=== PATIENT | male | born 1980 | race African-American/Black ===

== ENCOUNTER → 2024-01-16 16:27 | Outpatient (REF) | payer BC, SELFPAY ==
[2024-01-16 18:17] LABS: ALT (SGPT) 19 U/L (0-50); AST (SGOT) 33 U/L (17-59); Albumin 3.9 g/dl (3.5-5.0); Alkaline Phosphatase 100 U/L (38-126); Blood Urea Nitrogen 9 mg/dl (9-20); Carbon Dioxide 30 mmol/L (22-30); Chloride 104 mmol/L (98-107); Glucose 79 mg/dl (70-99); Potassium 4.9 mmol/L (3.5-5.1); Sodium 137 mmol/L (135-145); Total Bilirubin 0.5 mg/dl (0.2-1.3); Total Protein 7.3 g/dl (6.3-8.2); eGFR > 60.00
== END ==
LOC: REG 16:27
PROVIDERS: ATTENDING PHYSICIAN Student in an Organized Health Care Education/Training Program
DX: Z22.7 Latent tuberculosis (principal)
CPT/HCPCS: 36415; 80053

== ENCOUNTER → 2024-08-14 11:06 | Outpatient (REF) | payer BC, SELFPAY ==
[2024-08-14 19:29] LABS: ALT (SGPT) 23 U/L (0-50); AST (SGOT) 37 U/L (17-59); Albumin 4.5 g/dl (3.5-5.0); Alkaline Phosphatase 103 U/L (38-126); Blood Urea Nitrogen 11 mg/dl (9-20); Calcium 9.5 mg/dl (8.4-10.2); Carbon Dioxide 24 mmol/L (22-30); Chloride 105 mmol/L (98-107); Glucose 95 mg/dl (70-99); HDL Cholesterol 68 mg/dl; LDL Cholesterol, Calculated 123 mg/dl; Potassium 4.5 mmol/L (3.5-5.1); Sodium 139 mmol/L (135-145); Total Bilirubin 0.7 mg/dl (0.2-1.3); Total Cholesterol 205 mg/dl (50-199); Total Protein 7.3 g/dl (6.3-8.2); Triglyceride 73 mg/dl (10-149); Very Low Density Lipoprotein 14 mg/dl (0-30); eGFR > 60.00
[2024-08-14 19:35] LABS: Hematocrit 43.4 % (39.0-52.0); Hemoglobin 14.8 g/dL (13.0-18.0); Mean Corp Hgb Conc. 34.1 g/dL (33.0-37.0); Mean Corpuscular Hgb 30.8 pg (27.0-31.0); Mean Corpuscular Volume 90.2 fL (80.0-94.0); Platelet Count 219 10^3/uL (130-400); Red Blood Cell Count 4.81 10^6/uL (4.70-6.10); Red Cell Dist. Width 13.1 % (11.5-14.5); White Blood Cell Count 2.8 10^3/uL (4.8-10.8)
[2024-08-14 19:46] LABS: Free T4 0.88 ng/dl (0.78-2.19)
[2024-08-14 20:00] LABS: TSH 1.32 uIU/ml (0.47-4.68)
[2024-08-14 20:04] LABS: % Basophils 1.1 % (0-2); % Eosinophils 1.4 % (0-6); % Lymphocytes 56.3 % (20.5-51.1); % Monocytes 7.6 % (1.7-9.3); % Neutrophils 33.6 % (42.2-75.2); Absolute Lymphocytes 1.6 10^3/uL (1.2-3.4); Absolute Monocytes 0.2 10^3/uL (0.1-0.6); Absolute Neutrophils 0.9 10^3/uL (1.4-6.5); Nucleated Red Blood Cells % 0 % (-)
[2024-08-15 18:36] LABS: Hepatitis B Surface Antigen Negative (Negative)
[2024-08-15 18:51] LABS: Hepatitis B Core Ab, Total Negative (Negative); Hepatitis B Surface Antibody Positive; Hepatitis C Antibody Negative (Negative)
[2024-08-16 22:15] LABS: PSA Total 1.1 ng/mL (0.0-4.0)
== END ==
LOC: HWRAD 11:06
PROVIDERS: ATTENDING PHYSICIAN Student in an Organized Health Care Education/Training Program
DX: M25.552 Pain in left hip (principal); E78.5 Hyperlipidemia, unspecified; D70.9 Neutropenia, unspecified; Z11.59 Encounter for screening for other viral diseases; Z86.15 Personal history of latent tuberculosis infection; Z12.5 Encounter for screening for malignant neoplasm of prostate
CPT/HCPCS: 36415; 72110; 73502; 80053; 80061; 84153; 84154; 84439; 84443; 85025; 86704; 86706; 86803; 87340

== ENCOUNTER → 2024-09-17 12:00 | Outpatient (REF) | payer BC, SELFPAY | LOC: DHSLP 12:00 | PROVIDERS: ATTENDING PHYSICIAN Student in an Organized Health Care Education/Training Program | DX: G47.33 Obstructive sleep apnea (adult) (pediatric) (principal) | CPT/HCPCS: 95800 ==

== ENCOUNTER 2025-04-18 06:24 | Day surgery (SDC) | payer BC, SELFPAY | END 2025-04-18 10:03 | disposition home or self-care (01) | LOC: GI 06:24 | PROVIDERS: ATTENDING PHYSICIAN Internal Medicine Gastroenterology | DX: Z12.11 Encounter for screening for malignant neoplasm of colon (principal); K64.8 Other hemorrhoids; D12.2 Benign neoplasm of ascending colon | CPT/HCPCS: 45380; 88305 ==

== ENCOUNTER → 2025-10-03 12:18 | Outpatient (REF) | payer BC, SELFPAY ==
[2025-10-03 15:30] LABS: ALT (SGPT) 45 U/L (0-50); AST (SGOT) 55 U/L (17-59); Albumin 4.3 g/dl (3.5-5.0); Alkaline Phosphatase 77 U/L (38-126); Blood Urea Nitrogen 17 mg/dl (9-20); Calcium 9.4 mg/dl (8.4-10.2); Carbon Dioxide 29 mmol/L (22-30); Chloride 104 mmol/L (98-107); Glucose 79 mg/dl (70-99); HDL Cholesterol 73 mg/dl; LDL Cholesterol, Calculated 154 mg/dl; Potassium 4.8 mmol/L (3.5-5.1); Sodium 135 mmol/L (135-145); Total Protein 7.6 g/dl (6.3-8.2); Very Low Density Lipoprotein 12 mg/dl (0-30); eGFR > 60.00
[2025-10-03 15:33] LABS: Hematocrit 42.7 % (39.0-52.0); Hemoglobin 14.4 g/dL (13.0-18.0); Mean Corp Hgb Conc. 33.7 g/dL (33.0-37.0); Mean Corpuscular Volume 89.7 fL (80.0-94.0); Nucleated Red Blood Cells % 0 % (-); Platelet Count 207 10^3/uL (130-400); Red Cell Dist. Width 12.6 % (11.5-14.5)
[2025-10-03 16:14] LABS: CRP, Ultra Sensitive < 0.30 mg/L (0.30-5.00)
== END ==
LOC: HWLAB 12:18
PROVIDERS: ATTENDING PHYSICIAN Student in an Organized Health Care Education/Training Program
DX: R07.9 Chest pain, unspecified (principal); R00.2 Palpitations
CPT/HCPCS: 36415; 80053; 80061; 84443; 85025; 86141